=== PATIENT | female | born 1985 | race Caucasian/White ===

== ENCOUNTER 2017-03-21 10:14 | Day surgery (SDC) | payer OTHER ==
[~2017-03-21] VITALS: Ht 139.7 cm; Wt 59.0 kg
[2017-03-21] VITALS (15 sets, daily range): BP systolic 109–136; BP diastolic 70–87; PULSE 58–85; RESP 14–30; Ht 139.7 cm; Wt 59.0 kg
[~2017-03-21 10:14] MED LIST: CEFAZOLIN 1 GM INJ ONE
[2017-03-21] MEDS ORDERED: SOD CHLORIDE 0.9% 1,000 ML IV SCH (11:00)
[2017-03-21] MEDS ORDERED: CEFAZOLIN 2 GM/50 ML (PMX) 50 ML IVPB ONE (11:00)
--- NOTE | 2017-03-21 13:10 | HPN ---
Date/Time of Note Date/Time of Note DATE: 03/21/17 TIME: 13:10 Interval H&P Admission Note Pt. seen H&P reviewed: No system changes RAFAEL MARRERO MD Mar 21, 2017 13:10
[2017-03-21] MEDS ORDERED: MIDAZOLAM 1 MG/ML 2 ML INJ ONE (13:22)
[2017-03-21] MEDS ORDERED: BUPIVACAINE 0.25% (MPF) 30 ML INJ ONE (13:45)
[2017-03-21] MEDS ORDERED: METOCLOPRAMIDE 10 MG INJ IV PRN (14:00)
[2017-03-21] MEDS ORDERED: MEPERIDINE 25 MG INJ IV PRN (14:00)
[2017-03-21] MEDS ORDERED: DIPHENHYDRAMINE 50 MG INJ IV PRN (14:00)
[2017-03-21] MEDS ORDERED: FENTAnyl 50 MCG/ML VIAL IV PRN (14:00)
[2017-03-21] MEDS ORDERED: ONDANSETRON 4 MG INJ IV PRN ×2 (14:00→15:00)
[2017-03-21] MEDS ORDERED: morphine (1 MG/ML) 10ML SYRINGE IV PRN (14:00)
[2017-03-21] MEDS ORDERED: PROPOFOL 20 ML ONE (14:50)
[2017-03-21] MEDS ORDERED: LIDOCAINE 2% (SDV) 5 ML INJ ONE (14:50)
[2017-03-21] MEDS ORDERED: ONDANSETRON 4 MG INJ ONE (14:51)
[2017-03-21] MEDS ORDERED: GLYCOPYRROLATE 0.4 MG INJ ONE (14:51)
[2017-03-21] MEDS ORDERED: ROCURONIUM 50 MG INJ ONE (14:51)
[2017-03-21] MEDS ORDERED: NEOSTIGMINE 3 MG/3 ML SYRINGE ONE (14:51)
[2017-03-21] MEDS ORDERED: morphine 2 MG INJ IV PRN (15:00)
[2017-03-21] MEDS ORDERED: HYDROCODONE/APAP (5/325) TAB PO PRN ×2 (15:00)
[2017-03-21] MEDS ORDERED: IBUPROFEN 600 MG TAB PO PRN (15:00)
--- NOTE | 2017-03-21 15:02 | OPR ---
Date/Time of Note Date/Time of Note DATE: 03/21/17 TIME: 14:55 Operative Report Procedure Date: Mar 21, 2017 Preoperative Diagnosis Chronic cholecystitis/cholelithiasis Postoperative Diagnosis Chronic cholecystitis/cholelithiasis Operation Performed Laparoscopic cholecystectomy Surgeon: RAFAEL MARRERO MD Anesthesia Type: general Anesthesiologist: RASHID VU MD Estimated Blood Loss: minimal Transfusion Required: no Specimens Gallbladder Grafts/Implants: none Complications: no Pt Condition Post Procedure: stable Disposition: PACU Indications The patient is a 31-year-old female with a several year history of gallstone disease who presented to the office with intermittent right upper quadrant abdominal pain. The patient had clinical signs and symptoms of chronic cholecystitis and biliary colic which was confirmed via an ultrasound which showed the presence of gallstones. The patient was scheduled for laparoscopic cholecystectomy; possible open as definitive treatment to prevent further sequelae of gallstone disease which include but are not limited to: Gangrenous cholecystitis, choledocholithiasis, gallstone pancreatitis, ascending cholangitis, etc. All risks and benefits of the procedure including but not limited to: Wound infection, excessive bleeding, common bile duct injury, postoperative biliary leak, retained common bile duct stone, injury to intra- abdominal organs, conversion to open procedure, possible need for subsequent surgeries, etc. were all explained to the patient in full detail. She fully understood and wished to proceed with the procedure. Informed consent was therefore obtained. Operative\Procedure Findings Large gallstones within the gallbladder. Significant chronic scarring of the gallbladder to the liver bed and in the area of the cystic duct structures. Procedure Description The patient was brought to the operating room and placed supine on the operating table. Bilateral sequential compression devices were placed on both lower extremities. A dose of broad-spectrum perioperative intravenous antibiotics was given. After the induction of smooth general endotracheal anesthesia the patient's abdomen was prepped and draped in the standard surgical fashion. After performance of the surgical timeout a 5 mm incision was made in the inferior umbilicus and a Veress needle was used to access the intra- abdominal cavity atraumatically. Pneumoperitoneum was then obtained and the Veress needle was exchanged for a 5 mm trocar through which a 5 mm laparoscope was placed. Three further working ports were then placed a 12 mm port in the sub -xiphoid region and two 5 mm ports in the right upper quadrant. All port sites were anesthetized with 0.25% Marcaine with epinephrine prior to incision. Diagnostic laparoscopy showed adhesions of the uterus to the anterior abdominal wall from prior . There were chronic adhesions of the omentum and duodenum to the anterior surface of the gallbladder. These were taken down using a combination of blunt dissection and hook electrocautery and laparoscopic louise. Using atraumatic graspers the gallbladder was grasped and retracted superiorly and laterally exposing the area of Monae's pouch. Dissection was begun in this area using a combination of blunt dissection and hook electrocautery. There was significant chronic adhesions and scarring in the area of the cystic duct structures. Common bile duct had been tented up with adhesions towards the gallbladder. Great care was taken during dissection to stay high up on the gallbladder and avoid the common bile duct area. The cystic duct was identified as it entered straight into the neck of the gallbladder. It was dissected free of surrounding tissues and clipped proximally and distally x 3 and transected using EndoShears. Dissection was then continued posteriorly. The cystic artery was identified within a lot of inflammatory adhesions and scar tissue. It was dissected free of surrounding tissues. and clipped proximally x 1 and transected distally using EndoShears. The gallbladder was then dissected off the liver bed using electrocautery. There was chronic scarring of the gallbladder to the liver bed. Once completely free the gallbladder was placed in an Endo Catch bag and withdrawn through the subxiphoid port site and passed off the field as specimen. Hemostasis was then inspected for and noted to be total. The abdomen was then irrigated with several liters of warm normal saline and the irrigant returned crystal clear. The fascia of the subxiphoid port site was then reapproximated using an endo-close device and 0 Vicryl suture in [id number] fashion. Pneumoperitoneum was then released and all remaining trochars were withdrawn under direct vision. The subcutaneous tissues were irrigated with more warm normal saline and further local anesthesia was applied around the skin of the incision sites. The skin was then reapproximated using 4-0 Monocryl sutures in subcuticular fashion. The incisions were cleaned and Dermabond was applied to the incisions and the patient was awoken from anesthesia and transported to the recovery room in stable condition. All counts were correct at the end of the case x 2. RAFAEL MARRERO MD Mar 21, 2017 15:02
[2017-03-21] MEDS: KETOROLAC 30 MG INJ IV PRN ×2 (15:35→15:36)
== END 2017-03-21 17:35 | disposition home or self-care (01) ==
LOC: SDS 10:14
PROVIDERS: ATTEND Surgery
DX: K80.10 Calculus of gallbladder with chronic cholecystitis without obstruction (principal)
CPT/HCPCS: 47562; 88304; J0690; J1885; J2175; J2250; J2270; J2405; J2710; J3010; Z7512; Z7610